=== PATIENT | male | born 1985 | race Caucasian/White ===

== ENCOUNTER 2023-11-26 11:31 | Emergency (ER) | payer BC ==
[~2023-11-26] VITALS: Ht 170.2 cm; Wt 95.7 kg
[2023-11-26 11:49] VITALS: BP_SYST 150; PULSE 85; RESP 20; TEMP 98.3; O2SAT 98
[2023-11-26 12:19] LABS: ERYTHROCYTE SEDIMENTATION RATE 49 MM/HR (0-15)
[2023-11-26 12:21] LABS: BASOPHILS # (AUTO) 0.1 K/uL (0.0-0.2); BASOPHILS % (AUTO) 0.8 % (0.0-2.0); EOSINOPHILS # (AUTO) 0.1 K/uL (0.0-0.4); EOSINOPHILS % (AUTO) 0.9 % (0.0-4.0); HEMATOCRIT 45.8 % (36-54); HEMOGLOBIN 15.6 g/dL (14.0-18.0); LYMPHOCYTES # (AUTO) 1.7 K/uL (1.0-5.5); LYMPHOCYTES % (AUTO) 19.2 % (20.5-51.5); MEAN CORPUSCULAR HEMOGLOBIN 31 pg (27-31); MEAN CORPUSCULAR HGB CONC 34 % (32-36); MEAN CORPUSCULAR VOLUME 92 fL (79.0-98.0); MONOCYTES % (AUTO) 10.7 % (1.7-9.3); NEUTROPHILS # (AUTO) 6.1 K/uL (1.8-7.7); NEUTROPHILS % (AUTO) 68.4 % (40.0-70.0); PLATELET COUNT (AUTO) 385 K/uL (130-430); RED BLOOD CELL COUNT(AUTO) 4.97 MIL/uL (4.2-6.2); RED CELL DISTRIBUTION WIDTH 12.3 % (9.0-15.0); WHITE BLOOD COUNT (AUTO) 8.9 K/uL (4.8-10.8)
[2023-11-26 13:07] LABS: POTASSIUM 4.2 mmol/L (3.5-5.1)
[2023-11-26 13:08] LABS: CALCIUM 9.1 mg/dL (8.4-11.0); CREATININE 0.81 mg/dL (0.55-1.30)
[2023-11-26] MEDS: KETOROLAC TROMETHAMINE 30 MG VIAL IM ONE (13:43)
[2023-11-26] MEDS ORDERED: AUG875 PO (14:05)
[2023-11-26] MEDS ORDERED: NAPR-1172 PO (14:06)
[2023-11-26 14:16] VITALS: BP_SYST 150; PULSE 85; RESP 20; TEMP 98.3; O2SAT 98
== END 2023-11-26 14:14 | disposition home or self-care (01) ==
LOC: SED 11:31
DX: L03.011 Cellulitis of right finger (principal); I88.8 Other nonspecific lymphadenitis; Z79.899 Other long term (current) drug therapy; Z79.2 Long term (current) use of antibiotics
CPT/HCPCS: 99285; 80048; 85025; 85651; 36415; 76882; 96372; 82397; J1885

== ENCOUNTER 2023-12-03 12:46 | Emergency (ER) | payer BC ==
[~2023-12-03] VITALS: Ht 167.6 cm; Wt 95.3 kg
[2023-12-03 12:46] VITALS: BP_SYST 135; PULSE 109; RESP 17; TEMP 98.2; O2SAT 99
[~2023-12-03 12:46] MED LIST: AUG875 PO; NAPR-1172 PO
[2023-12-03] MEDS ORDERED: LIDOCAINE 1%, 20 ML MDV 20 ML ONE (13:58)
[2023-12-03] MEDS ORDERED: CLIN-142 PO (14:20)
[2023-12-03] MEDS ORDERED: IBUP-1971 PO (14:20)
[2023-12-03] MEDS: CLINDAMYCIN HCL 150 MG CAPSULE PO ONE (14:47)
[2023-12-03] MEDS: DIPHTH,PERTUSS(ACELL),TET VAC 0.5 ML VIAL (Tdap) I.M. ONE (14:50)
[2023-12-03] MEDS: LIDOCAINE 1% 10 MG/ML, 20 ML MDV INJ ONE (14:51)
[2023-12-03] MEDS: BACITRACIN 1 GM OINT TP ONE (14:51)
== END 2023-12-03 15:01 | disposition home or self-care (01) ==
LOC: SED 12:46
DX: L02.511 Cutaneous abscess of right hand (principal); Z23 Encounter for immunization; Z79.899 Other long term (current) drug therapy; Z79.2 Long term (current) use of antibiotics
CPT/HCPCS: 90715; 99283; J2001